=== PATIENT | male | born 1990 | race Caucasian/White ===

== ENCOUNTER 2016-09-25 02:58 | Emergency (ER) | payer SELFPAY ==
[~2016-09-25] VITALS: Ht 185.4 cm; Wt 125.0 kg
[~2016-09-25 02:58] MED LIST: DICL75 PO; METH750T2 PO
[2016-09-25 03:02] VITALS: BP 177/107; PULSE 95; RESP 12; TEMP 98.8; O2SAT 98
[2016-09-25 03:17] VITALS: BP 177/101; PULSE 95; RESP 18; TEMP 98.8; O2SAT 98
[2016-09-25] MEDS ORDERED: TOBRAMYCIN SULFATE 0.3% OPTH OINT 3.5 GM TUBE LEFT EYE ONE (03:45)
[2016-09-25 03:58] VITALS: BP 190/94; PULSE 88; RESP 18; O2SAT 98
[2016-09-25] MEDS ORDERED: TOBR.3%O LEFT EYE (03:58)
--- NOTE | 2016-09-25 04:00 | PD ---
HPI Chief Complaint: Eye Problems/Injury Time Seen by Provider: 03:30 Travel History International Travel<30 days: No Contact w/Intl Traveler<30days: No Traveled to known affect area: No History of Present Illness HPI The patient is a 26-year-old male that has noticed conjunctival injection, gradually progressive over the last 3 days. He denies any foreign body sensation or eye pain. He denies any visual loss. There is no problem with the right eye. He denies any cough, fever, sore throat, chest pain, shortness of breath or rhinorrhea. He denies any exposure to welding. 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 [facility] Past Medical History Medical History: Denies Significant Hx Diabetes: No (FAMILY HISTORY-CONCERNED THAT HE MAY HAVE IT WELL) Diminished Hearing: No Immunizations Current: No Tetanus Vaccination: > 5 Years Influenza Vaccination: No Past Surgical History Surgical History: No Previous Surgery Valve Replacement: Yes (TEETH PULLED) Social History Alcohol Use: Yes (12-18 drinks/daily (States beer and liquor)) Tobacco Use: Yes (1 PPD) Substance Use: Yes (Marijuana occ.) Allergies-Medications (Allergen,Severity, Reaction): Coded Allergies: No Known Allergies (Verified , 09/25/16) Reported Meds & Prescriptions Reported Meds & Active Scripts Active No Active Prescriptions or Reported Medications Review of Systems Except as stated in HPI: all other systems reviewed are Neg Physical Exam Narrative GENERAL: Well-nourished, well-developed patient in minimal apparent distress with his left eye discomfort. His vital signs show blood pressure 177/107 and repeat 177/101. The rest of the vital signs are normal. SKIN: Focused skin assessment warm/dry. HEAD: Normocephalic. EYES: Visual acuity is 20 over 20 in the left eye and the right eye. No scleral icterus. The right eye has no injection and no drainage. The left eye shows conjunctival injection with clear drainage. No foreign body is seen under the lids/tarsal plate. Fluorescein staining shows no corneal uptake. NECK: Supple, trachea midline. No JVD or lymphadenopathy. CARDIOVASCULAR: Regular rate and rhythm without murmurs, gallops, or rubs. RESPIRATORY: Breath sounds equal bilaterally. No accessory muscle use. GASTROINTESTINAL: Abdomen soft, non-tender, nondistended. MUSCULOSKELETAL: No cyanosis, or edema. BACK: Nontender without obvious deformity. No CVA tenderness. Data Data Last Documented VS Vital Signs Date Time Temp Pulse Resp B/P Pulse Ox O2 Delivery O2 Flow Rate FiO2 09/25/16 03:19 95 18 09/25/16 03:17 98.8 177/101 98 Orders Tobramycin 0.3% Opth Oint (Tobrex 0.3% O (09/25/16 03:45) MDM Medical Decision Making Medical Screen Exam Complete: Yes Emergency Medical Condition: Yes Medical Record Reviewed: Yes Differential Diagnosis Allergic conjunctivitis, viral conjunctivitis, bacterial conjunctivitis, chemical conjunctivitis Narrative Course The patient has no history of exposure to chemicals, welding or allergies. He may have a viral versus bacterial conjunctivitis. He also has an elevated blood pressure. He states he normally does not have a problem with blood pressure in this may simply be whitecoat syndrome. Nevertheless, the patient should follow-up with a primary care physician to check this blood pressure. Hopefully, this week or early next week he can follow-up with a primary care physician. Plan: The patient is given Tobrex ointment. This should be put in at least 4 times a day after warm compresses to the left eye only. If he develops conjunctivitis in the right eye, the right eye should be included in the treatments. Diagnosis Primary Impression: Conjunctivitis Additional Impression: Elevated blood pressure reading Additional Instructions: As we discussed, use the ointment 4 times a day in the left eye after warm compresses. If the right eye develops inflammation, apply the warm compresses/ ointment into the right eye as well. Follow-up with an air twister winder if not better. Should get better within for 4 days. Follow-up with a primary care physician this week or early next week regarding your elevated blood pressure. Med/Other Pt SpecificInfo: Prescription(s) given Scripts Tobramycin Opth Oint (Tobrex Opth Oint)0.3 % Oint1 Applic LEFT EYE QID #1 TUBE Ref 0 Prov:Randy Glover MD 09/25/16 Disposition: 01 DISCHARGE HOME Condition: Stable Randy Glover MD September 25, 2016 04:00
== END 2016-09-25 04:20 | disposition home or self-care (01) ==
LOC: PHED 02:58
DX: H10.9 Unspecified conjunctivitis (principal); R03.0 Elevated blood-pressure reading, without diagnosis of hypertension; F17.200 Nicotine dependence, unspecified, uncomplicated
CPT/HCPCS: 99283

== ENCOUNTER 2016-09-26 21:49 | Emergency (ER) | payer SELFPAY ==
[~2016-09-26] VITALS: Ht 185.4 cm; Wt 124.1 kg
[~2016-09-26 21:49] MED LIST changes: +TOBR.3%O LEFT EYE
[2016-09-26 22:03] VITALS: PULSE 98; RESP 16; TEMP 99.1; O2SAT 98
== END 2016-09-26 22:53 | disposition left against medical advice (07) ==
LOC: PHED 21:49
DX: H02.849 Edema of unspecified eye, unspecified eyelid (principal); Z53.21 Procedure and treatment not carried out due to patient leaving prior to being seen by health care provider
CPT/HCPCS: 99281

== ENCOUNTER 2016-09-27 02:10 | Emergency (ER) | payer SELFPAY ==
[~2016-09-27] VITALS: Ht 185.4 cm; Wt 124.3 kg
[2016-09-27 02:19] VITALS: BP 149/97; PULSE 86; RESP 16; TEMP 98; O2SAT 98
--- NOTE | 2016-09-27 06:03 | PD ---
HPI Chief Complaint: Eye Problems/Injury Time Seen by Provider: 05:58 Travel History International Travel<30 days: No Contact w/Intl Traveler<30days: No Traveled to known affect area: No History of Present Illness HPI The patient is a 26-year-old male that was seen on the for conjunctivitis in the left eye. At that time he had no involvement of the right eye. He was given tobramycin ointment but he states it is not getting any better. He was told at that time that if this is a virus no antibiotic will help. The patient does not have any foreign body sensation in either eye but he knows that the conjunctival swelling is a little worse. PFSH Past Medical History Diminished Hearing: No Immunizations Current: No Tetanus Vaccination: < 5 Years Influenza Vaccination: No Past Surgical History Valve Replacement: Yes (TEETH PULLED) Social History Alcohol Use: Yes (12-18 drinks/daily (States beer and liquor)) Tobacco Use: Yes (1 PPD) Substance Use: Yes (Marijuana occ.) Allergies-Medications (Allergen,Severity, Reaction): Coded Allergies: No Known Allergies (Verified , 09/25/16) Reported Meds & Prescriptions Reported Meds & Active Scripts Active Tobrex Opth Oint (Tobramycin Sulfate) 0.3 % Oint 1 Applic LEFT EYE QID Review of Systems Except as stated in HPI: all other systems reviewed are Neg Physical Exam Narrative GENERAL: Well-nourished, well-developed patient. SKIN: Focused skin assessment warm/dry. HEAD: Normocephalic. EYES: No scleral icterus. There is injection in both eyes, left greater than right and a clear drainage. No corneal involvement is seen. NECK: Supple, trachea midline. No JVD or lymphadenopathy. CARDIOVASCULAR: Regular rate and rhythm without murmurs, gallops, or rubs. RESPIRATORY: Breath sounds equal bilaterally. No accessory muscle use. GASTROINTESTINAL: Abdomen soft, non-tender, nondistended. MUSCULOSKELETAL: No cyanosis, or edema. BACK: Nontender without obvious deformity. No CVA tenderness. Data Data Last Documented VS Vital Signs Date Time Temp Pulse Resp B/P Pulse Ox O2 Delivery O2 Flow Rate FiO2 09/27/16 03:00 16 09/27/16 02:19 98.0 86 149/97 98 MDM Medical Decision Making Medical Screen Exam Complete: Yes Emergency Medical Condition: Yes Medical Record Reviewed: Yes Differential Diagnosis Conjunctivitisviral, conjunctivitisbacterial, conjunctivitisallergic, conjunctivitischemical, keratitis Narrative Course There does not appear to be any corneal involvement at this time. This appears to be a viral conjunctivitis since bacterial ointments were of no benefit. Diagnosis Primary Impression: Viral conjunctivitis of both eyes Additional Instructions: Wash her hands thoroughly if you touch the eye area. This is contagious. If you feel you have a foreign body sensation and increasing pain in your eye then you need to see an fit model because this could mean corneal involvement. Med/Other Pt SpecificInfo: No Change to Meds Disposition: 01 DISCHARGE HOME Condition: Stable Randy Glover MD September 27, 2016 06:03
== END 2016-09-27 06:17 | disposition home or self-care (01) ==
LOC: PHED 02:10
DX: B30.9 Viral conjunctivitis, unspecified (principal); F17.200 Nicotine dependence, unspecified, uncomplicated
CPT/HCPCS: 99282

== ENCOUNTER 2016-10-26 02:18 | Emergency (ER) | payer SELFPAY ==
[~2016-10-26] VITALS: Ht 185.4 cm; Wt 125.5 kg
[~2016-10-26 02:18] MED LIST changes: -DICL75 PO; -METH750T2 PO
[2016-10-26 02:24] VITALS: BP 167/109; PULSE 99; RESP 12; TEMP 98.3; O2SAT 96
[2016-10-26] MEDS ORDERED: CLIN1CAP5 PO (03:35)
--- NOTE | 2016-10-26 03:35 | PD ---
HPI Chief Complaint: Skin Problem Time Seen by Provider: 03:16 Travel History International Travel<30 days: No Contact w/Intl Traveler<30days: No Traveled to known affect area: No History of Present Illness HPI Is a 26-year-old male with a history of cocaine abuse and alcohol use presents to the [facility] department for evaluation of right upper extremity cellulitis. Patient states been present for the past day and gradually worsening. An EMT friend circled the area of cellulitis and when the cellulitis slowly move past that R decided to come in and be seen. He does admit to drinking tonight. Adamantly declines any IV drug use now or in the past. Denies any fever bowel pain nausea vomiting. PFSH Past Medical History Medical History: Denies Significant Hx Diminished Hearing: No Immunizations Current: No Influenza Vaccination: No Past Surgical History Valve Replacement: Yes (TEETH PULLED) Social History Alcohol Use: Yes (12-18 drinks/daily (States beer and liquor)) Tobacco Use: Yes (1 PPD) Substance Use: Yes (Marijuana occ.) Allergies-Medications (Allergen,Severity, Reaction): Coded Allergies: No Known Allergies (Verified , 10/26/16) Reported Meds & Prescriptions Reported Meds & Active Scripts Active Clindamycin (Clindamycin HCl) 150 Mg Cap 300 Mg PO Q6H 10 Days Review of Systems Except as stated in HPI: all other systems reviewed are Neg Physical Exam Narrative GENERAL: Well-nourished, well-developed patient. SKIN: Patient has a area of cellulitis oblong on the right medial aspect near the elbow. There is some induration in the middle approximately quarter size. The latest extends approximately 5 cm proximally and distally from this area and approximately 3 cm laterally and medially. There is no lymph angina, no tract leavitt observed. HEAD: Normocephalic. EYES: No scleral icterus. No injection or drainage. NECK: Supple, trachea midline. No JVD or lymphadenopathy. CARDIOVASCULAR: Regular rate and rhythm without murmurs, gallops, or rubs. RESPIRATORY: Breath sounds equal bilaterally. No accessory muscle use. GASTROINTESTINAL: Abdomen soft, non-tender, nondistended. MUSCULOSKELETAL: No cyanosis, or edema. BACK: Nontender without obvious deformity. No CVA tenderness. Data Data Last Documented VS Vital Signs Date Time Temp Pulse Resp B/P Pulse Ox O2 Delivery O2 Flow Rate FiO2 10/26/16 03:45 90 16 139/85 97 10/26/16 02:24 98.3 Orders Ed Poc Ultrasound (10/26/16 ) Clindamycin (Cleocin) (10/26/16 03:45) MDM Medical Decision Making Medical Screen Exam Complete: Yes Emergency Medical Condition: Yes Differential Diagnosis Cellulitis, abscess, rumble phlebitis unlikely, sepsis is excluded clinically. Alcohol intoxication. Narrative Course Patient was roomed in emergency department, he appears well although somewhat intoxicated. He is accompanied by a female friend who is a clinically sober courtesy van driver. Bedside ultrasound shows no abscess, he is amenable for a trial of antibiotics. Discussed return to ED criteria and follow-up with his primary care physician. Procedures Procedure Narrative Bedside ultrasound soft tissue of the right upper extremity: There is significant cobblestoning with streaking fluid in between the layers, very very small accumulation of fluids and not amenable to ER drainage. Diagnosis Primary Impression: Cellulitis of right upper extremity Med/Other Pt SpecificInfo: Prescription(s) given Scripts Clindamycin 150 Mg Mbo114 Mg PO Q6H 10 Days Ref 0 Prov:Patel Botello MD 10/26/16 Disposition: 01 DISCHARGE HOME Condition: Stable Patel Botello MD Oct 26, 2016 03:35
[2016-10-26 03:45] VITALS: BP 139/85
[2016-10-26] MEDS ORDERED: CLINDAMYCIN 150 MG CAP PO ONE (03:45)
== END 2016-10-26 03:49 | disposition home or self-care (01) ==
LOC: PHED 02:18
DX: L03.113 Cellulitis of right upper limb (principal); F17.200 Nicotine dependence, unspecified, uncomplicated